=== PATIENT | male | born 1935 | race Caucasian/White ===

== ENCOUNTER 2021-10-16 16:55 | Observation (INO) ==
[2021-10-16 19:08] LABS: Basophils % 0.4 %; Eosinophils # 0.2 K/mcL (0.0-0.6); Eosinophils % 2.3 %; Hematocrit 43.4 % (37.5-50.1); Hemoglobin 13.9 g/dL (12.9-16.9); Immature Granulocytes % 0.3 % (0-4); Lymphocytes # 1.4 K/mcL (0.6-4.6); Lymphocytes % 14.4 %; Mean Corpuscular Hemoglobin 30.5 pg (28.0-33.3); Mean Corpuscular Volume 95.2 fL (83.0-100.0); Mean Platelet Volume 10.2 fL (9.4-12.4); Monocytes % 10.7 %; Neutrophils # 6.8 K/mcL (1.6-8.9); Platelet Count 223 K/mcL (140-400); Red Blood Count 4.56 M/mcL (4.19-5.50); Red Cell Distribution Width 13.4 % (11.5-14.5); Segmented Neutrophils % 71.9 %; White Blood Count 9.4 K/mcL (4.3-11.1)
[2021-10-16] MEDS ORDERED: Morphine Sulfate 2 MG/ML SYRINGE IVP STA (19:08)
[2021-10-16 19:14] LABS: Bilirubin,Urine Negative (Negative); Blood,Urine Negative (Negative); Clarity,Urine Clear (Clear); Color,Urine Light-Yellow (Yellow); Glucose,Urine (UA) Normal (Normal); Ketones,Urine Negative (Negative); Leukocyte Esterase,Urine Negative (Negative); Nitrite,Urine Negative (Negative); Protein,Urine >=300 mg/dL (Neg-Trace); RBC,Urine 0-3 per hpf (0-3); Specific Gravity,Urine 1.022 (1.010-1.025); Squamous Epithelial Cell,Urine Few per hpf (None-Few); Urobilinogen,Urine Normal (Normal); WBC,Urine 0-3 per hpf (0-3)
[2021-10-16] MEDS ORDERED: cefTRIAXone 1,000 MG in Water for inj. (sterile) 10 ML IVP ONE (19:47)
[2021-10-16] MEDS ORDERED: Vancomycin 1,750 MG/517.5 ML IV.SOLN IVPB ONE (20:00)
[2021-10-16 20:12] LABS: BUN/Creatinine Ratio 28 (6-26); Blood Urea Nitrogen 25 mg/dL (8-23); Calcium 9.9 mg/dL (8.6-10.3); Carbon Dioxide 29 mEq/L (23-29); Chloride 103 mEq/L (98-107); Glucose 112 mg/dL (70-105); Osmolality,Calculated 289 (280-300); Potassium 4.2 mEq/L (3.5-5.1); Sodium 137 mEq/L (136-145); eGFR For African Americans > 60 (> 60); eGFR For Non-African Americans > 60 (> 60)
[2021-10-16] MEDS ORDERED: Melatonin 3 MG TABLET PO PRN (20:19)
[2021-10-16] MEDS ORDERED: Naloxone 0.4 MG/ML INJ IVP PRN (20:19)
[2021-10-16] MEDS ORDERED: *HR* OxyCODONE Immed Rel 5 MG TABLET PO PRN (20:19)
[2021-10-16] MEDS ORDERED: *HR* HYDROcodone/Acet 5/325 mg TABLET PO PRN (20:19)
[2021-10-16] MEDS ORDERED: Ondansetron ODT 4 MG TAB.RAPDIS SL PRN (20:19)
[2021-10-16] MEDS ORDERED: Acetaminophen 325 MG TABLET PO PRN (20:19)
[2021-10-17 02:47] LABS: Basophils % 0.4 %; Eosinophils # 0.2 K/mcL (0.0-0.6); Hematocrit 36.9 % (37.5-50.1); Immature Granulocytes % 0.3 % (0-4); Lymphocytes # 1.3 K/mcL (0.6-4.6); Lymphocytes % 15.9 %; Mean Corpuscular HGB Conc 32.8 g/dL (31.6-35.5); Mean Corpuscular Hemoglobin 30.9 pg (28.0-33.3); Mean Corpuscular Volume 94.4 fL (83.0-100.0); Mean Platelet Volume 10.7 fL (9.4-12.4); Monocytes # 0.9 K/mcL (0.0-1.3); Monocytes % 11.8 %; Neutrophils # 5.5 K/mcL (1.6-8.9); Platelet Count 187 K/mcL (140-400); Red Blood Count 3.91 M/mcL (4.19-5.50); Red Cell Distribution Width 13.3 % (11.5-14.5); Segmented Neutrophils % 69.6 %; White Blood Count 7.9 K/mcL (4.3-11.1)
[2021-10-17 02:49] LABS: Hemoglobin 12.1 g/dL (12.9-16.9)
[2021-10-17 03:03] LABS: BUN/Creatinine Ratio 27 (6-26); Blood Urea Nitrogen 25 mg/dL (8-23); Carbon Dioxide 27 mEq/L (23-29); Chloride 107 mEq/L (98-107); Glucose 152 mg/dL (70-105); Osmolality,Calculated 291 (280-300); Sodium 137 mEq/L (136-145); eGFR For African Americans > 60 (> 60); eGFR For Non-African Americans > 60 (> 60)
[2021-10-17 07:06] VITALS: O2SAT 93
[2021-10-17] MEDS ORDERED: DilTIAZem CD (24hr) 300 MG CAP.ER.24H PO SCH (09:00)
[2021-10-17] MEDS ORDERED: lisinopriL 20 MG TABLET PO SCH (09:00)
[2021-10-17] MEDS ORDERED: Isosorbide MONOnitrate (24 HR) 60 MG TAB.ER.24H PO SCH (09:00)
[2021-10-17] MEDS ORDERED: Furosemide 40 MG TABLET PO SCH (09:00)
[2021-10-17] MEDS ORDERED: Aspirin Enteric Coated 81 MG Tablet PO SCH (09:00)
[2021-10-17] MEDS ORDERED: GlipiZIDE 5 MG TABLET PO SCH (09:00)
[2021-10-17] MEDS ORDERED: allopurinoL 100 MG TABLET PO SCH (09:00)
[2021-10-17] MEDS ORDERED: Clotrimazole 1% CRM 15 GM TUBE TP SCH (09:45)
[2021-10-17 11:40] VITALS: BP 172/77; PULSE 66; TEMP 97.5
[2021-10-17] MEDS ORDERED: cefTRIAXone 1,000 MG in 0.9 % Sodium Chloride Mini Bag 100 ML IVPB SCH (21:00)
== END 2021-10-17 13:40 | disposition home or self-care (01) ==
LOC: 3BNU 16:55 → EMEROOARM 16:55 → SUATTDRO 19:55 → 3BNU 20:35
PROVIDERS: ADMIT Internal Medicine; ATTEND Nurse Practitioner

== ENCOUNTER 2021-12-06 20:22 | Inpatient (IN) ==
[2021-12-06] MEDS ORDERED: Naloxone 0.4 MG/ML INJ IVP PRN (21:56)
[2021-12-06] MEDS ORDERED: Acetaminophen 325 MG TABLET PO PRN (21:56)
[2021-12-06] MEDS ORDERED: Nitroglycerin 0.4 MG TAB.SUBL SL PRN (21:59)
[2021-12-06] MEDS ORDERED: Perflutren Lipid Microsphere 1.3 ML in 0.9 % Sodium Chloride 8.7 ML IVP PRN (22:19)
[2021-12-06] MEDS ORDERED: Dextrose Gel 15 GM/37.5 ML TUBE PO PRN ×2 (22:25)
[2021-12-06] MEDS ORDERED: D5% in Water 1,000 ML IVC PRN (22:25)
[2021-12-06] MEDS ORDERED: *HR* Dextrose 50 % in Water (Syg) 50 ML SYRINGE IVP PRN (22:25)
[2021-12-06] MEDS: DilTIAZem 50 MG/50 ML IV.SOLN IVC SCH (22:36)
[2021-12-07] MEDS: Insulin LISPRO 300 UNITS/3 ML VIAL SUBQ SCH ×4 (02:31→18:11)
[2021-12-07 03:33] LABS: Hematocrit 40.8 % (37.5-50.1); Hemoglobin 13.4 g/dL (12.9-16.9); Mean Corpuscular HGB Conc 32.8 g/dL (31.6-35.5); Mean Corpuscular Hemoglobin 30.2 pg (28.0-33.3); Mean Corpuscular Volume 91.9 fL (83.0-100.0); Mean Platelet Volume 10.6 fL (9.4-12.4); Platelet Count 255 K/mcL (140-400); Red Blood Count 4.44 M/mcL (4.19-5.50); Red Cell Distribution Width 13.2 % (11.5-14.5); White Blood Count 10.2 K/mcL (4.3-11.1)
[2021-12-07 03:47] LABS: BUN/Creatinine Ratio 27 (6-26); Blood Urea Nitrogen 37 mg/dL (8-23); Calcium 9.6 mg/dL (8.6-10.3); Carbon Dioxide 25 mEq/L (23-29); Chloride 102 mEq/L (98-107); Chol/HDL Ratio 3.5 (0-4.9); Cholesterol 148 mg/dL (< 200); Glucose 213 mg/dL (70-105); HDL Cholesterol 42 mg/dL (40-59); LDL Cholesterol,Calculated 87 mg/dL (< 100); Osmolality,Calculated 297 (280-300); Potassium 3.8 mEq/L (3.5-5.1); Sodium 136 mEq/L (136-145); Triglycerides 95 mg/dL (< 150); eGFR For African Americans > 60 (> 60); eGFR For Non-African Americans 50 (> 60)
[2021-12-07 03:48] LABS: INR 3.6; Prothrombin Time 39.9 Seconds (9.4-12.1)
[2021-12-07 03:50] LABS: Activated Partial Thrombo Time 40.2 Seconds (26.0-36.0)
[2021-12-07 03:58] LABS: Troponin I 2.53 ng/mL (< 0.04)
[2021-12-07] MEDS: DilTIAZem 50 MG/50 ML IV.SOLN IVC SCH ×2 (04:26→10:00)
[2021-12-07] MEDS ORDERED: *HR* Phytonadione 10 MG/ML AMPUL SQ ONE (10:14)
[2021-12-07] MEDS ORDERED: Furosemide 40 MG/4 ML VIAL IVP ONE (10:28)
[2021-12-07] MEDS: Aspirin 81 MG TAB.CHEW PO SCH (11:07)
[2021-12-07 14:43] LABS: INR 3.5; Prothrombin Time 38.7 Seconds (9.4-12.1)
[2021-12-08] MEDS: Insulin LISPRO 300 UNITS/3 ML VIAL SUBQ SCH ×4 (00:48→19:57)
[2021-12-08 05:43] LABS: Basophils % 0.4 %; Eosinophils # 0.1 K/mcL (0.0-0.6); Eosinophils % 0.6 %; Hemoglobin 14.6 g/dL (12.9-16.9); Immature Granulocytes % 0.6 % (0-4); Lymphocytes # 0.6 K/mcL (0.6-4.6); Lymphocytes % 5.5 %; Mean Corpuscular HGB Conc 33.2 g/dL (31.6-35.5); Mean Corpuscular Hemoglobin 30.5 pg (28.0-33.3); Mean Corpuscular Volume 92.1 fL (83.0-100.0); Mean Platelet Volume 10.7 fL (9.4-12.4); Monocytes # 1.3 K/mcL (0.0-1.3); Monocytes % 12.3 %; Neutrophils # 8.3 K/mcL (1.6-8.9); Platelet Count 263 K/mcL (140-400); Red Blood Count 4.78 M/mcL (4.19-5.50); Red Cell Distribution Width 13.4 % (11.5-14.5); Segmented Neutrophils % 80.6 %; White Blood Count 10.3 K/mcL (4.3-11.1)
[2021-12-08 05:57] LABS: BUN/Creatinine Ratio 38 (6-26); Blood Urea Nitrogen 50 mg/dL (8-23); Calcium 9.8 mg/dL (8.6-10.3); Carbon Dioxide 22 mEq/L (23-29); Chloride 102 mEq/L (98-107); Glucose 203 mg/dL (70-105); Osmolality,Calculated 299 (280-300); Potassium 3.4 mEq/L (3.5-5.1); Prothrombin Time 21.7 Seconds (9.4-12.1); Sodium 135 mEq/L (136-145); eGFR For African Americans > 60 (> 60); eGFR For Non-African Americans 52 (> 60)
[2021-12-08] MEDS ORDERED: *HR* Heparin 5,000 UNIT/ML VIAL IVP ONE (07:05)
[2021-12-08] MEDS ORDERED: *HR* Heparin 5,000 UNIT/ML VIAL IVP PRN ×2 (07:05)
[2021-12-08] MEDS: Aspirin 81 MG TAB.CHEW PO SCH (07:43)
[2021-12-08] MEDS: Heparin 25,000UNIT/250ML 1/2NS 25,000 UNIT/250 ML IV.SOLN IVC SCH (07:52)
[2021-12-08 08:31] LABS: Hemoglobin 14.4 g/dL (12.9-16.9); Mean Corpuscular HGB Conc 32.7 g/dL (31.6-35.5); Mean Corpuscular Hemoglobin 30.1 pg (28.0-33.3); Mean Corpuscular Volume 91.9 fL (83.0-100.0); Mean Platelet Volume 10.7 fL (9.4-12.4); Platelet Count 287 K/mcL (140-400); Red Blood Count 4.79 M/mcL (4.19-5.50); Red Cell Distribution Width 13.4 % (11.5-14.5); White Blood Count 11.5 K/mcL (4.3-11.1)
[2021-12-08 11:25] LABS: Heparin anti-factor XA UFH 0.47 IU/mL (0.30-0.70)
[2021-12-08 11:26] LABS: INR 1.7; Prothrombin Time 18.6 Seconds (9.4-12.1)
[2021-12-08] MEDS: Furosemide 40 MG/4 ML VIAL IVP SCH ×2 (13:53→18:43)
[2021-12-08] MEDS: Ondansetron 4 MG/2 ML VIAL IVP PRN (14:24)
[2021-12-09] MEDS: Heparin 25,000UNIT/250ML 1/2NS 25,000 UNIT/250 ML IV.SOLN IVC SCH ×2 (00:29→16:57)
[2021-12-09] MEDS: Insulin LISPRO 300 UNITS/3 ML VIAL SUBQ SCH ×4 (00:30→17:54)
[2021-12-09] MEDS: Aspirin 81 MG TAB.CHEW PO SCH (09:40)
[2021-12-09] MEDS: Furosemide 40 MG/4 ML VIAL IVP SCH (09:40)
[2021-12-09 09:47] LABS: INR 1.3; Prothrombin Time 14.3 Seconds (9.4-12.1)
[2021-12-09 09:57] LABS: Calcium 10.3 mg/dL (8.6-10.3); Magnesium 2.7 mg/dL (1.6-2.6); Phosphorous 4.7 mg/dL (2.7-4.5); Potassium 3.5 mEq/L (3.5-5.1)
[2021-12-09] MEDS: *HR* Metoprolol 5 MG/5 ML VIAL IVP SCH ×3 (11:26→14:08)
[2021-12-09] MEDS: Phenytoin 200 MG in Equashield Syringe 1 EACH IVP SCH (11:27)
[2021-12-09 11:53] LABS: ABG Base Excess 3 mEq/L (-2 to 3); ABG HCO3 27 mEq/L (21-27); ABG Oxygen Saturation 94 % (95-98); ABG PCO2 39 mmHg (35-45); ABG PH 7.46 pH Units (7.32-7.45); ABG PO2 67 mmHg (85-104); ABG TCO2 29 mEq/L (20-26)
[2021-12-09] MEDS ORDERED: *HR* Metoprolol 5 MG/5 ML VIAL IVP ONE (14:43)
[2021-12-09] MEDS ORDERED: DilTIAZem 50 MG in 0.9 % Sodium Chloride 40 ML IVC SCH (14:45)
[2021-12-09] MEDS ORDERED: Amiodarone 450 MG in 0.9 % Sodium Chloride Excel Bg 241 ML IVC ONE (14:46)
[2021-12-09] MEDS ORDERED: Furosemide 40 MG/4 ML VIAL IVP ONE (14:46)
[2021-12-09] MEDS ORDERED: Amiodarone Premix 360 MG/200 ML BAG IVC ONE (14:46)
[2021-12-09] MEDS ORDERED: Amiodarone Premix 150 MG/100 ML BAG IVPB ONE (14:46)
[2021-12-09] MEDS: Albumin 25% 25gram/100mL 25 GM/100 ML IV.SOLN IVPB SCH (15:03)
[2021-12-09 15:14] LABS: Hematocrit 50.7 % (37.5-50.1); Hemoglobin 16.7 g/dL (12.9-16.9); Lymphocytes # 0.5 K/mcL (0.6-4.6); Mean Corpuscular HGB Conc 32.9 g/dL (31.6-35.5); Mean Corpuscular Hemoglobin 30.6 pg (28.0-33.3); Mean Platelet Volume 10.5 fL (9.4-12.4); Platelet Count 423 K/mcL (140-400); Red Blood Count 5.45 M/mcL (4.19-5.50); Red Cell Distribution Width 13.7 % (11.5-14.5); White Blood Count 5.2 K/mcL (4.3-11.1)
[2021-12-09 16:02] LABS: Monocytes # 0.3 K/mcL (0.0-1.3); Neutrophils # 4.3 K/mcL (1.6-8.9)
[2021-12-09 16:03] LABS: Platelet Estimate Increased (Normal)
[2021-12-09] MEDS: Piperacillin/Tazobactam 3.375 GM in 0.9 % Sodium Chloride Mini Bag 100 ML IVPB SCH (16:50)
[2021-12-09] MEDS: Acetaminophen IV 1,000 MG/100 ML BAG IVPB SCH (20:26)
[2021-12-10] MEDS: Insulin LISPRO 300 UNITS/3 ML VIAL SUBQ SCH ×4 (01:01→17:18)
[2021-12-10] MEDS: *HR* Metoprolol 5 MG/5 ML VIAL IVP SCH ×5 (01:05→23:54)
[2021-12-10] MEDS: Piperacillin/Tazobactam 3.375 GM in 0.9 % Sodium Chloride Mini Bag 100 ML IVPB SCH ×3 (01:36→15:30)
[2021-12-10] MEDS: Acetaminophen IV 1,000 MG/100 ML BAG IVPB SCH ×4 (01:47→18:46)
[2021-12-10 01:59] LABS: Hematocrit 46.4 % (37.5-50.1); Hemoglobin 15.3 g/dL (12.9-16.9); Mean Corpuscular Hemoglobin 30.5 pg (28.0-33.3); Mean Corpuscular Volume 92.6 fL (83.0-100.0); Platelet Count 325 K/mcL (140-400); Red Blood Count 5.01 M/mcL (4.19-5.50); Red Cell Distribution Width 13.8 % (11.5-14.5)
[2021-12-10 02:09] LABS: White Blood Count 10.1 K/mcL (4.3-11.1)
[2021-12-10 02:16] LABS: INR 1.4; Prothrombin Time 15.1 Seconds (9.4-12.1)
[2021-12-10 02:25] LABS: Calcium 9.8 mg/dL (8.6-10.3); Magnesium 2.6 mg/dL (1.6-2.6); Phosphorous 4.4 mg/dL (2.7-4.5); Potassium 3.5 mEq/L (3.5-5.1)
[2021-12-10 02:53] LABS: Monocytes # 0.4 K/mcL (0.0-1.3); Neutrophils # 6.7 K/mcL (1.6-8.9); Reactive Lymphocytes Present (Not Present)
[2021-12-10 02:54] LABS: Platelet Estimate Normal (Normal)
[2021-12-10] MEDS: Phenytoin 200 MG in Equashield Syringe 1 EACH IVP SCH ×3 (06:24→23:53)
[2021-12-10] MEDS: Albumin 25% 25gram/100mL 25 GM/100 ML IV.SOLN IVPB SCH ×2 (06:25→08:22)
[2021-12-10] MEDS: Amiodarone 450 MG in 0.9 % Sodium Chloride Excel Bg 241 ML IVC SCH (08:20)
[2021-12-10] MEDS ORDERED: Furosemide 20 MG/2 ML VIAL IVP SCH (09:00)
[2021-12-10] MEDS: Metoclopramide 10 MG/2 ML VIAL IVP SCH ×3 (12:22→23:54)
[2021-12-10] MEDS ORDERED: 0.9 % Sodium Chloride 1,000 ML IVC SCH ×2 (13:00)
[2021-12-10 13:19] LABS: Uric Acid 15.1 mg/dL (2.3-7.6)
[2021-12-10] MEDS ORDERED: Isovue-370 500 ML BOTTLE IVP ONE (13:56)
[2021-12-10] MEDS ORDERED: Morphine Sulfate 2 MG/ML SYRINGE IVP ONE (14:22)
[2021-12-11] MEDS: Acetaminophen IV 1,000 MG/100 ML BAG IVPB SCH ×4 (00:01→18:28)
[2021-12-11] MEDS: Piperacillin/Tazobactam 3.375 GM in 0.9 % Sodium Chloride Mini Bag 100 ML IVPB SCH ×2 (02:41→14:30)
[2021-12-11] MEDS: Heparin 25,000UNIT/250ML 1/2NS 25,000 UNIT/250 ML IV.SOLN IVC SCH ×2 (02:41→22:20)
[2021-12-11] MEDS: Insulin LISPRO 300 UNITS/3 ML VIAL SUBQ SCH ×5 (02:43→22:27)
[2021-12-11] MEDS: Metoclopramide 10 MG/2 ML VIAL IVP SCH (06:34)
[2021-12-11] MEDS: *HR* Metoprolol 5 MG/5 ML VIAL IVP SCH ×3 (06:35→17:37)
[2021-12-11] MEDS: Amiodarone 450 MG in 0.9 % Sodium Chloride Excel Bg 241 ML IVC SCH ×2 (07:36→22:20)
[2021-12-11 07:40] LABS: Hematocrit 42.4 % (37.5-50.1); Mean Corpuscular HGB Conc 32.3 g/dL (31.6-35.5); Mean Corpuscular Volume 92.8 fL (83.0-100.0); Mean Platelet Volume 10.9 fL (9.4-12.4); Platelet Count 235 K/mcL (140-400); Red Blood Count 4.57 M/mcL (4.19-5.50); Red Cell Distribution Width 14.1 % (11.5-14.5); White Blood Count 6.4 K/mcL (4.3-11.1)
[2021-12-11 07:47] LABS: Hemoglobin 13.7 g/dL (12.9-16.9)
[2021-12-11 08:01] LABS: Calcium 8.8 mg/dL (8.6-10.3); Magnesium 2.8 mg/dL (1.6-2.6); Phosphorous 4.8 mg/dL (2.7-4.5); Potassium 3.9 mEq/L (3.5-5.1)
[2021-12-11] MEDS: Phenytoin 200 MG in Equashield Syringe 1 EACH IVP SCH ×2 (08:10→22:22)
[2021-12-11 08:24] LABS: Lymphocytes # 1.3 K/mcL (0.6-4.6); Monocytes # 0.4 K/mcL (0.0-1.3); Neutrophils # 4.7 K/mcL (1.6-8.9)
[2021-12-11 08:25] LABS: Large Platelets Present (Not Present); Platelet Estimate Normal (Normal)
[2021-12-11 08:32] LABS: Bilirubin,Urine Negative (Negative); Blood,Urine Moderate (Negative); Clarity,Urine Ex.Turbid (Clear); Color,Urine Dark-Yellow (Yellow); Glucose,Urine (UA) 30 mg/dL (Normal); Ketones,Urine Trace mg/dL (Negative); Leukocyte Esterase,Urine Trace (Negative); Nitrite,Urine Negative (Negative); Protein,Urine 70 mg/dL (Neg-Trace); Specific Gravity,Urine > 1.030 (1.010-1.025); Urobilinogen,Urine Normal (Normal)
[2021-12-11 08:48] LABS: Sodium, Urine 18.8 mEq/L
[2021-12-11 09:19] LABS: RBC,Urine TNTC per hpf (0-3); Squamous Epithelial Cell,Urine Few per hpf (None-Few); Transitional Epi Cells,Urine Few per hpf (None-Few)
[2021-12-11 09:20] LABS: Amorphous Sediment,Urine Many per hpf (None-Few); Bacteria,Urine Few per hpf (None-Few); Granular Casts,Urine Few per lpf (None Seen)
[2021-12-11 09:21] LABS: Renal Epithelial Cells,Urine Moderate per hpf (None-Few)
[2021-12-11 09:22] LABS: Calcium Oxalate Crystals,Urine Present per hpf
[2021-12-11] MEDS ORDERED: Methylnaltrexone 12 MG/0.6 ML SYRINGE SQ ONE (10:00)
[2021-12-11] MEDS: Metoclopramide 20 MG in 0.9 % Sodium Chloride 50 ML IVPB SCH ×2 (11:17→17:50)
[2021-12-11] MEDS: Albumin 25% 25gram/100mL 25 GM/100 ML IV.SOLN IVC SCH ×4 (11:40→16:37)
[2021-12-11] MEDS ORDERED: D10% in Water 500 ML IVC PRN (11:49)
[2021-12-11] MEDS ORDERED: Heparin 1,000 UNITS/500 mL 500 ML ONE (14:36)
[2021-12-11] MEDS ORDERED: Clinimix E 5%-20% SOLUTION 2,000 ML, Parenteral Amino Acid 10% 0 ML with MVI, adult wi... IVC SCH (17:00)
[2021-12-11] MEDS ORDERED: Clinimix 5%-20% SOLUTION 2,000 ML with MVI, adult with vitamin K 10 ML, Sodium Acetat... IVC SCH (17:00)
[2021-12-12] MEDS: Insulin LISPRO 300 UNITS/3 ML VIAL SUBQ SCH ×6 (00:44→21:23)
[2021-12-12] MEDS: *HR* Metoprolol 5 MG/5 ML VIAL IVP SCH ×4 (00:44→17:13)
[2021-12-12] MEDS: Acetaminophen IV 1,000 MG/100 ML BAG IVPB SCH ×4 (00:51→17:14)
[2021-12-12] MEDS: Metoclopramide 20 MG in 0.9 % Sodium Chloride 50 ML IVPB SCH ×2 (03:17→10:24)
[2021-12-12] MEDS: Piperacillin/Tazobactam 3.375 GM in 0.9 % Sodium Chloride Mini Bag 100 ML IVPB SCH ×2 (04:12→15:52)
[2021-12-12 04:33] LABS: Eosinophils # 0.1 K/mcL (0.0-0.6); Hematocrit 37.4 % (37.5-50.1); Hemoglobin 12.4 g/dL (12.9-16.9); Mean Corpuscular HGB Conc 33.2 g/dL (31.6-35.5); Mean Corpuscular Hemoglobin 30.5 pg (28.0-33.3); Mean Corpuscular Volume 92.1 fL (83.0-100.0); Mean Platelet Volume 11.3 fL (9.4-12.4); Platelet Count 218 K/mcL (140-400); Red Blood Count 4.06 M/mcL (4.19-5.50); Red Cell Distribution Width 13.9 % (11.5-14.5)
[2021-12-12 04:50] LABS: Albumin 3.8 g/dL (3.5-5.7); Albumin/Globulin Ratio 1.1 (1.1-2.2); Bilirubin,Total 0.8 mg/dL (0.3-1.0); Calcium 8.6 mg/dL (8.6-10.3); Globulin 3.6 g/dL (2.4-3.5); Magnesium 2.9 mg/dL (1.6-2.6); Phosphorous 2.9 mg/dL (2.7-4.5); Potassium 3.3 mEq/L (3.5-5.1); Total Protein 7.4 g/dL (6.4-8.9)
[2021-12-12 05:01] LABS: Lymphocytes # 0.9 K/mcL (0.6-4.6); Monocytes # 0.3 K/mcL (0.0-1.3); Neutrophils # 2.7 K/mcL (1.6-8.9); Platelet Estimate Normal (Normal)
[2021-12-12] MEDS ORDERED: Bisacodyl 10 MG RECTAL SUPPOSITORY RC ONE (08:00)
[2021-12-12] MEDS: Phenytoin 200 MG in Equashield Syringe 1 EACH IVP SCH ×2 (09:47→21:17)
[2021-12-12] MEDS: Heparin 25,000UNIT/250ML 1/2NS 25,000 UNIT/250 ML IV.SOLN IVC SCH ×2 (11:17→13:53)
[2021-12-12] MEDS: Amiodarone Premix 360 MG/200 ML BAG IVC SCH ×2 (11:55→23:30)
[2021-12-12] MEDS: Fat Emulsion 250 ML IVPB SCH (17:12)
[2021-12-12] MEDS: Clinimix 5%-20% SOLUTION 2,000 ML with MVI, adult with vitamin K 10 ML, Sodium Acetat... IVC SCH ×2 (17:12→17:15)
[2021-12-13] MEDS: Insulin LISPRO 300 UNITS/3 ML VIAL SUBQ SCH ×6 (00:15→21:25)
[2021-12-13] MEDS: Acetaminophen IV 1,000 MG/100 ML BAG IVPB SCH ×4 (00:24→17:28)
[2021-12-13] MEDS: Heparin 25,000UNIT/250ML 1/2NS 25,000 UNIT/250 ML IV.SOLN IVC SCH ×3 (03:59→18:49)
[2021-12-13] MEDS: *HR* Metoprolol 5 MG/5 ML VIAL IVP SCH ×4 (03:59→19:09)
[2021-12-13] MEDS ORDERED: Methylnaltrexone 12 MG/0.6 ML SYRINGE SQ ONE (07:45)
[2021-12-13] MEDS: Phenytoin 200 MG in Equashield Syringe 1 EACH IVP SCH ×2 (08:42→21:27)
[2021-12-13 09:34] LABS: Hematocrit 42.6 % (37.5-50.1); Lymphocytes # 0.5 K/mcL (0.6-4.6); Mean Corpuscular HGB Conc 33.3 g/dL (31.6-35.5); Mean Corpuscular Hemoglobin 30.6 pg (28.0-33.3); Mean Corpuscular Volume 91.8 fL (83.0-100.0); Mean Platelet Volume 11.1 fL (9.4-12.4); Platelet Count 221 K/mcL (140-400); Red Blood Count 4.64 M/mcL (4.19-5.50); Red Cell Distribution Width 13.9 % (11.5-14.5); White Blood Count 5.7 K/mcL (4.3-11.1)
[2021-12-13 09:35] LABS: Hemoglobin 14.2 g/dL (12.9-16.9)
[2021-12-13 09:45] LABS: Albumin 3.6 g/dL (3.5-5.7); Albumin/Globulin Ratio 0.9 (1.1-2.2); Bilirubin,Total 0.6 mg/dL (0.3-1.0); Calcium 9.2 mg/dL (8.6-10.3); Magnesium 2.5 mg/dL (1.6-2.6); Phosphorous 2.3 mg/dL (2.7-4.5); Potassium 3.3 mEq/L (3.5-5.1); Total Protein 7.6 g/dL (6.4-8.9)
[2021-12-13] MEDS: Amiodarone Premix 360 MG/200 ML BAG IVC SCH (10:14)
[2021-12-13 10:50] LABS: Monocytes # 0.7 K/mcL (0.0-1.3); Neutrophils # 4.5 K/mcL (1.6-8.9); Platelet Estimate Normal (Normal); Reactive Lymphocytes Present (Not Present)
[2021-12-13] MEDS: Piperacillin/Tazobactam 3.375 GM in 0.9 % Sodium Chloride Mini Bag 100 ML IVPB SCH ×2 (16:18)
[2021-12-13] MEDS ORDERED: Clinimix 5%-20% SOLUTION 2,000 ML with MVI, adult with vitamin K 10 ML, Sodium Acetat... IVC SCH (17:00)
[2021-12-14] MEDS: Amiodarone Premix 360 MG/200 ML BAG IVC SCH ×2 (00:05→15:29)
[2021-12-14] MEDS: Insulin LISPRO 300 UNITS/3 ML VIAL SUBQ SCH ×6 (00:06→20:01)
[2021-12-14] MEDS: *HR* Metoprolol 5 MG/5 ML VIAL IVP SCH ×4 (00:07→17:36)
[2021-12-14] MEDS: Acetaminophen IV 1,000 MG/100 ML BAG IVPB SCH ×4 (00:07→17:37)
[2021-12-14] MEDS: Piperacillin/Tazobactam 3.375 GM in 0.9 % Sodium Chloride Mini Bag 100 ML IVPB SCH ×2 (03:12→15:39)
[2021-12-14 04:49] LABS: Hematocrit 43.2 % (37.5-50.1); Hemoglobin 14.1 g/dL (12.9-16.9); Mean Corpuscular HGB Conc 32.6 g/dL (31.6-35.5); Mean Corpuscular Hemoglobin 30.1 pg (28.0-33.3); Mean Corpuscular Volume 92.3 fL (83.0-100.0); Mean Platelet Volume 11.9 fL (9.4-12.4); Platelet Count 220 K/mcL (140-400); Red Blood Count 4.68 M/mcL (4.19-5.50); Red Cell Distribution Width 13.9 % (11.5-14.5); White Blood Count 4.4 K/mcL (4.3-11.1)
[2021-12-14 05:14] LABS: Albumin 3.3 g/dL (3.5-5.7); Albumin/Globulin Ratio 0.8 (1.1-2.2); Bilirubin,Total 0.5 mg/dL (0.3-1.0); Calcium 9.2 mg/dL (8.6-10.3); Globulin 4.4 g/dL (2.4-3.5); Magnesium 2.6 mg/dL (1.6-2.6); Phosphorous 2.4 mg/dL (2.7-4.5); Potassium 2.9 mEq/L (3.5-5.1); Total Protein 7.7 g/dL (6.4-8.9)
[2021-12-14 08:08] LABS: Eosinophils # 0.2 K/mcL (0.0-0.6); Lymphocytes # 0.8 K/mcL (0.6-4.6); Monocytes # 0.4 K/mcL (0.0-1.3); Neutrophils # 3.1 K/mcL (1.6-8.9)
[2021-12-14 08:09] LABS: Platelet Estimate Normal (Normal); Reactive Lymphocytes Present (Not Present)
[2021-12-14] MEDS ORDERED: Bisacodyl 10 MG RECTAL SUPPOSITORY RC ONE (08:59)
[2021-12-14] MEDS: Heparin 25,000UNIT/250ML 1/2NS 25,000 UNIT/250 ML IV.SOLN IVC SCH (11:07)
[2021-12-14] MEDS: Phenytoin 200 MG in Equashield Syringe 1 EACH IVP SCH ×2 (11:12→22:11)
[2021-12-14] MEDS ORDERED: Clinimix 5%-20% SOLUTION 2,000 ML with MVI, adult with vitamin K 10 ML, Sodium Acetat... IVC SCH (17:00)
[2021-12-14] MEDS: Pantoprazole 40 MG VIAL IVP SCH (17:36)
[2021-12-14] MEDS: Fat Emulsion 250 ML IVPB SCH (17:36)
[2021-12-15] MEDS: Insulin LISPRO 300 UNITS/3 ML VIAL SUBQ SCH ×6 (01:05→20:11)
[2021-12-15] MEDS: Amiodarone Premix 360 MG/200 ML BAG IVC SCH ×2 (01:06→12:51)
[2021-12-15] MEDS: *HR* Metoprolol 5 MG/5 ML VIAL IVP SCH ×4 (01:07→17:20)
[2021-12-15] MEDS: Heparin 25,000UNIT/250ML 1/2NS 25,000 UNIT/250 ML IV.SOLN IVC SCH ×2 (01:07→17:28)
[2021-12-15] MEDS: Acetaminophen IV 1,000 MG/100 ML BAG IVPB SCH ×4 (01:09→17:21)
[2021-12-15] MEDS: Piperacillin/Tazobactam 3.375 GM in 0.9 % Sodium Chloride Mini Bag 100 ML IVPB SCH ×2 (03:22→16:05)
[2021-12-15] MEDS: Pantoprazole 40 MG VIAL IVP SCH ×2 (06:05→17:20)
[2021-12-15 06:50] LABS: Albumin 3.1 g/dL (3.5-5.7); Albumin/Globulin Ratio 0.7 (1.1-2.2); Bilirubin,Total 0.4 mg/dL (0.3-1.0); Calcium 9.3 mg/dL (8.6-10.3); Globulin 4.2 g/dL (2.4-3.5); Magnesium 2.2 mg/dL (1.6-2.6); Potassium 2.9 mEq/L (3.5-5.1); Total Protein 7.3 g/dL (6.4-8.9)
[2021-12-15 07:14] LABS: Basophils # 0.1 K/mcL (0.0-0.2); Eosinophils # 0.2 K/mcL (0.0-0.6); Eosinophils % 3.5 %; Hematocrit 43.3 % (37.5-50.1); Hemoglobin 13.5 g/dL (12.9-16.9); Immature Granulocytes % 3.9 % (0-4); Lymphocytes # 0.6 K/mcL (0.6-4.6); Lymphocytes % 12.8 %; Mean Corpuscular HGB Conc 31.2 g/dL (31.6-35.5); Mean Corpuscular Hemoglobin 29.3 pg (28.0-33.3); Mean Corpuscular Volume 94.1 fL (83.0-100.0); Mean Platelet Volume 11.9 fL (9.4-12.4); Monocytes # 0.7 K/mcL (0.0-1.3); Monocytes % 13.8 %; Neutrophils # 3.2 K/mcL (1.6-8.9); Platelet Count 199 K/mcL (140-400); Red Cell Distribution Width 14.2 % (11.5-14.5); White Blood Count 4.9 K/mcL (4.3-11.1)
[2021-12-15] MEDS ORDERED: Potassium Phosphate 44 MEQ in 0.9 % Sodium Chloride 250 ML IVPB ONE (08:46)
[2021-12-15] MEDS: Phenytoin 200 MG in Equashield Syringe 1 EACH IVP SCH ×2 (10:05→22:01)
[2021-12-15] MEDS ORDERED: Bisacodyl 10 MG RECTAL SUPPOSITORY RC ONE (15:19)
[2021-12-15] MEDS ORDERED: Clinimix 5%-20% SOLUTION 2,000 ML with MVI, adult with vitamin K 10 ML, Sodium Acetat... IVC SCH (17:00)
[2021-12-16] MEDS: *HR* Metoprolol 5 MG/5 ML VIAL IVP SCH ×5 (00:15→23:09)
[2021-12-16] MEDS: Amiodarone Premix 360 MG/200 ML BAG IVC SCH ×3 (00:15→23:25)
[2021-12-16] MEDS: Acetaminophen IV 1,000 MG/100 ML BAG IVPB SCH ×5 (00:15→23:18)
[2021-12-16] MEDS: Insulin LISPRO 300 UNITS/3 ML VIAL SUBQ SCH ×6 (00:16→21:36)
[2021-12-16] MEDS: Piperacillin/Tazobactam 3.375 GM in 0.9 % Sodium Chloride Mini Bag 100 ML IVPB SCH ×2 (03:03→16:31)
[2021-12-16 04:06] LABS: Albumin/Globulin Ratio 0.7 (1.1-2.2); Bilirubin,Total 0.4 mg/dL (0.3-1.0); Calcium 9.1 mg/dL (8.6-10.3); Globulin 4.2 g/dL (2.4-3.5); Potassium 3.2 mEq/L (3.5-5.1); Total Protein 7.2 g/dL (6.4-8.9)
[2021-12-16 04:07] LABS: Phosphorous 3.8 mg/dL (2.7-4.5)
[2021-12-16] MEDS: Pantoprazole 40 MG VIAL IVP SCH ×2 (06:37→16:32)
[2021-12-16] MEDS: Phenytoin 200 MG in Equashield Syringe 1 EACH IVP SCH ×2 (09:59→23:01)
[2021-12-16] MEDS: Heparin 25,000UNIT/250ML 1/2NS 25,000 UNIT/250 ML IV.SOLN IVC SCH (10:17)
[2021-12-16] MEDS: D5% in Water 1,000 ML IVC SCH (16:43)
[2021-12-16] MEDS ORDERED: Clinimix 5%-20% SOLUTION 2,000 ML with MVI, adult with vitamin K 10 ML, Sodium Acetat... IVC SCH (17:00)
[2021-12-17] MEDS: Heparin 25,000UNIT/250ML 1/2NS 25,000 UNIT/250 ML IV.SOLN IVC SCH ×2 (00:44→15:38)
[2021-12-17] MEDS: Insulin LISPRO 300 UNITS/3 ML VIAL SUBQ SCH ×6 (00:48→19:51)
[2021-12-17] MEDS: Piperacillin/Tazobactam 3.375 GM in 0.9 % Sodium Chloride Mini Bag 100 ML IVPB SCH ×2 (03:31→15:35)
[2021-12-17 05:26] LABS: Basophils % 0.4 %; Eosinophils # 0.3 K/mcL (0.0-0.6); Eosinophils % 4.8 %; Hematocrit 41.3 % (37.5-50.1); Lymphocytes # 0.8 K/mcL (0.6-4.6); Lymphocytes % 11.7 %; Mean Corpuscular HGB Conc 31.5 g/dL (31.6-35.5); Mean Corpuscular Hemoglobin 29.9 pg (28.0-33.3); Mean Corpuscular Volume 94.9 fL (83.0-100.0); Mean Platelet Volume 11.6 fL (9.4-12.4); Monocytes # 0.6 K/mcL (0.0-1.3); Monocytes % 9.2 %; Neutrophils # 4.9 K/mcL (1.6-8.9); Platelet Count 201 K/mcL (140-400); Red Blood Count 4.35 M/mcL (4.19-5.50); Red Cell Distribution Width 14.2 % (11.5-14.5); Segmented Neutrophils % 71.9 %; White Blood Count 6.9 K/mcL (4.3-11.1)
[2021-12-17 05:50] LABS: Magnesium 1.8 mg/dL (1.6-2.6); Phosphorous 3.1 mg/dL (2.7-4.5)
[2021-12-17 05:51] LABS: Albumin/Globulin Ratio 0.7 (1.1-2.2); Bilirubin,Total 0.3 mg/dL (0.3-1.0); Calcium 9.3 mg/dL (8.6-10.3); Globulin 4.3 g/dL (2.4-3.5); Potassium 3.6 mEq/L (3.5-5.1); Total Protein 7.3 g/dL (6.4-8.9)
[2021-12-17] MEDS: *HR* Metoprolol 5 MG/5 ML VIAL IVP SCH ×3 (05:52→16:24)
[2021-12-17] MEDS: Acetaminophen IV 1,000 MG/100 ML BAG IVPB SCH ×3 (05:52→19:50)
[2021-12-17] MEDS: Pantoprazole 40 MG VIAL IVP SCH ×2 (05:53→16:24)
[2021-12-17] MEDS: D5% in Water 1,000 ML IVC SCH (07:51)
[2021-12-17] MEDS: Phenytoin 200 MG in Equashield Syringe 1 EACH IVP SCH ×2 (11:00→21:07)
[2021-12-17] MEDS: Amiodarone Premix 360 MG/200 ML BAG IVC SCH ×2 (11:34→23:21)
[2021-12-17] MEDS: Fat Emulsion 250 ML IVPB SCH (16:13)
[2021-12-17] MEDS ORDERED: Clinimix E 5%-15% SOLUTION 2,000 ML with MVI, adult with vitamin K 10 ML IVC SCH (17:00)
[2021-12-18] MEDS: *HR* Metoprolol 5 MG/5 ML VIAL IVP SCH ×3 (00:13→11:31)
[2021-12-18] MEDS: D5% in Water 1,000 ML IVC SCH (00:15)
[2021-12-18] MEDS: Insulin LISPRO 300 UNITS/3 ML VIAL SUBQ SCH ×4 (00:15→11:31)
[2021-12-18] MEDS: Acetaminophen IV 1,000 MG/100 ML BAG IVPB SCH ×4 (00:23→13:38)
[2021-12-18] MEDS: Piperacillin/Tazobactam 3.375 GM in 0.9 % Sodium Chloride Mini Bag 100 ML IVPB SCH (04:33)
[2021-12-18 05:30] LABS: Basophils % 0.4 %; Eosinophils # 0.3 K/mcL (0.0-0.6); Eosinophils % 2.3 %; Hematocrit 41.2 % (37.5-50.1); Hemoglobin 13.2 g/dL (12.9-16.9); Immature Granulocytes % 1.5 % (0-4); Lymphocytes # 0.8 K/mcL (0.6-4.6); Lymphocytes % 6.9 %; Mean Corpuscular Hemoglobin 30.6 pg (28.0-33.3); Mean Corpuscular Volume 95.4 fL (83.0-100.0); Mean Platelet Volume 11.7 fL (9.4-12.4); Monocytes # 0.6 K/mcL (0.0-1.3); Monocytes % 5.4 %; Platelet Count 242 K/mcL (140-400); Red Blood Count 4.32 M/mcL (4.19-5.50); Segmented Neutrophils % 83.5 %; White Blood Count 10.8 K/mcL (4.3-11.1)
[2021-12-18] MEDS: Pantoprazole 40 MG VIAL IVP SCH (05:34)
[2021-12-18 05:50] LABS: Albumin 3.1 g/dL (3.5-5.7); Albumin/Globulin Ratio 0.7 (1.1-2.2); Bilirubin,Total 0.3 mg/dL (0.3-1.0); Calcium 9.1 mg/dL (8.6-10.3); Globulin 4.3 g/dL (2.4-3.5); Magnesium 1.7 mg/dL (1.6-2.6); Phosphorous 3.6 mg/dL (2.7-4.5); Potassium 3.7 mEq/L (3.5-5.1); Total Protein 7.4 g/dL (6.4-8.9)
[2021-12-18] MEDS: Heparin 25,000UNIT/250ML 1/2NS 25,000 UNIT/250 ML IV.SOLN IVC SCH (06:10)
[2021-12-18] MEDS: Phenytoin 200 MG in Equashield Syringe 1 EACH IVP SCH (10:04)
[2021-12-18] MEDS ORDERED: Glycopyrrolate 0.2 MG/ML VIAL IVP PRN (10:40)
[2021-12-18] MEDS: Ondansetron 4 MG/2 ML VIAL IVP PRN (10:48)
[2021-12-18] MEDS: *HR* FentaNYL (PF) 100 MCG/2 ML VIAL IVP PRN ×4 (10:48→17:38)
[2021-12-18] MEDS: *HR* LORazepam 2 MG/ML VIAL IVP PRN ×4 (10:48→17:38)
[2021-12-18] MEDS: Amiodarone Premix 360 MG/200 ML BAG IVC SCH (11:30)
[2021-12-18] MEDS ORDERED: Atropine Sulfate 1% 40 DROP/2 ML BOTTLE BOTH EYES SCH (12:00)
[2021-12-18] MEDS: Atropine Sulfate 1% 40 DROP/2 ML BOTTLE SL PRN ×2 (13:17→17:39)
[2021-12-18 13:20] VITALS: O2SAT 95
[2021-12-18] MEDS ORDERED: Scopolamine Patch 1.5 MG PATCH.TD72 TD SCH (16:00)
[2021-12-18 17:09] VITALS: BP 53/39; PULSE 41; TEMP 99.9
== END 2021-12-18 18:20 | disposition expired ==
LOC: 3NENU → SUATTDRO 12-08 12:53 → 2NNU 12-16 18:03 → 2ANU 12-18 11:36
PROVIDERS: ADMIT General Practice; ATTEND Internal Medicine